=== PATIENT | female | born 2000 | race Caucasian/White ===

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

== ENCOUNTER 2021-10-05 16:01 | Emergency (ER) | payer OTHER, BC, SELFPAY ==
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
[2021-10-05 16:11] VITALS: BP 110/81; PULSE 51; RESP 16; TEMP 37.4; O2SAT 100
== END 2021-10-05 16:48 | disposition home or self-care (01) ==
PROVIDERS: Emergency Provider Nurse Practitioner Family
DX: S16.1XXA Strain of muscle, fascia and tendon at neck level, initial encounter (principal); V43.52XA Car driver injured in collision with other type car in traffic accident, initial encounter; F17.290 Nicotine dependence, other tobacco product, uncomplicated
CPT/HCPCS: 99213; G0463

== ENCOUNTER 2022-09-17 09:35 | Emergency (ER) | payer BC, SELFPAY ==
--- NOTE | ~2022-09-17 | XR_ITS ---
EXAMINATION: XR knee LT 3V DATE: 09/17/2022 10:22 INDICATION: Left anterior knee bump. TECHNIQUE: 3 views of left knee were obtained. COMPARISON: None. FINDINGS: Bone alignment is normal. No fracture. Joint spaces are well maintained. There is no knee j oint effusion. There is soft tissue swelling superficial to tibial tubercle. IMPRESSION: 1. Soft tissue swelling superficial to tibial tubercle. Reviewed, dictated and finalized at location A.
[2022-09-17 09:41] VITALS: BP 108/69; PULSE 69; RESP 16; TEMP 36.3; O2SAT 100
--- NOTE | 2022-09-17 09:59 | ED.EXTPRO ---
HPI - Extremity Problem General Chief complaint: Extremity Problem,Nontraumatic Stated complaint: BUMP ON L KNEE Time Seen by Provider: 09/17/22 10:07 Source: patient and RN notes reviewed Mode of arrival: ambulatory Limitations: no limitations History of Present Illness HPI Narrative: 22-year-old female presents concern for gallbladder left knee. She reports it has been there for about 2-3 months. She reports it is painful when she kneels. She denies any injury or trauma. Denies redness, warmth. Denies decreased sensation, strength, range of motion the knee MD Complaint: other Related Data Allergies Allergy/AdvReac Type Severity Reaction Status Date / Time No Known Allergies Allergy Verified 09/22/21 10:20 Review of Systems Review of Systems: CONSTITUTIONAL: Denies malaise, chills, sweats, or fever. CARDIOVASCULAR: Denies chest pain, palpitations, or edema. RESPIRATORY: Denies cough or dyspnea. SKIN: Denies rash or itching, bruising, redness, swelling. MUSCULOSKELETAL: Reports a bump on her left knee that is painful when she kneels on it NEUROLOGIC: Denies numbness, weakness All systems reviewed & are unremarkable except as noted in HPI and below PMFSH Past Medical History Medical History Menstrual disorder (~12/2018) Family History Family History Other Breast cancer maternal aunt Social History Social History Smoking status: Never smoker Tobacco type: e-cigarettes/vaping Alcohol intake: never Substance use: current Substance use type: marijuana Other substance usage details: 2-3 x week Living arrangements: other Additional living arrangements comments: single Occupation/Education: occupation 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 There is no relevant family history pertinent to the presenting complaint Exam Narrative: GENERAL: Well-appearing, well-nourished, and in no acute distress. HEAD: Normocephalic, atraumatic. EYES: PERRLA, conjunctivae clear NECK: Supple. CHEST: Speaks in full sentences. No respiratory distress. HEART: Regular rate and rhythm. Normal and equal peripheral pulses. EXTREMITIES: Left knee has normal strength and sensation, normal range of motion. No edema or ecchymosis. 5/5 strength with knee flexion and extension. Normal sensation with sensitivity to light touch and pain. No general tenderness. No open wounds, no skin tenting, no devitalized tissue or atrophy, no trophic changes, alignment normal, nearby joints and structures intact. Distal pulses palpable and equal bilaterally, skin warm, dry, pink. Capillary refill less than 3 seconds. Mobile mildly tender nodule noted the the left anterior knee approximately 1.5cm in diameter SKIN: Warm, dry, no rash. NEURO: Alert and oriented x3. PSYCH: Normal mood and affect Course Course Emergency Course: Patient is aware of diagnosis, understands and agrees to treatment plan. Anticipatory guidance given. Patient agrees to follow-up as directed and is aware of reasons to seek care at the emergency department. Portions of this record may have been created with voice recognition software Level of Care: Express Care Visit Vital Signs Vital signs: Vital Signs Temperature 97.3 F L 09/17/22 09:41 Pulse Rate 69 09/17/22 09:41 Respiratory Rate 16 09/17/22 09:41 Blood Pressure 108/69 09/17/22 09:41 Pulse Oximetry 100 09/17/22 09:41 Temperature 97.3 F L 09/17/22 09:41 Pulse Rate 69 09/17/22 09:41 Respiratory Rate 16 09/17/22 09:41 Blood Pressure 10
== END 2022-09-17 10:54 | disposition home or self-care (01) ==
PROVIDERS: Emergency Provider Nurse Practitioner
DX: L72.9 Follicular cyst of the skin and subcutaneous tissue, unspecified (principal); F12.90 Cannabis use, unspecified, uncomplicated
CPT/HCPCS: 73562; 99213; G0463